=== PATIENT | male | born 1960 | race Caucasian/White ===

== ENCOUNTER 2020-04-07 07:34 | Emergency (ER) | payer BC, OTHER ==
[2020-04-07] MEDS ORDERED: Ondansetron 4 MG/2 ML SDV IVPUSH ONE (07:50)
[2020-04-07] MEDS ORDERED: HYDROmorphone 1 MG/ML Syringe IVPUSH STA (07:50)
--- NOTE | 2020-04-07 07:55 | EDM.PDOC ---
ED HPI GENERAL MEDICAL PROBLEM - General Chief Complaint: Abdominal Pain Stated Complaint: [facility] Time Seen by Provider: 04/07/20 07:40 Source of Information: Reports: Patient History Limitations: Reports: No Limitations - History of Present Illness INITIAL COMMENTS - FREE TEXT/NARRATIVE: Mr. Schaeffer is a very pleasant 59-year-old gentleman who is now brought to the ED by EMS after waking up around 02:30 this morning with left-sided abdominal and left flank pain. He describes the pain as burning in character, and states that it is constant. He has not identified any modifiers. He states that he has felt some cold sweats and nausea, but he has not vomited, and there is no associated constipation, diarrhea, or urinary symptoms. No prior similar symptoms. The patient did not take any mdaw-akl-qbvzjcs or home remedies before calling EMS, however, he was given 100 mcg of intranasal fentanyl en route to the ED. Here in the ED, the patient's initial BP is found to be mildly elevated at 148/47, otherwise, he is hemodynamically stable, afebrile, saturating 100% on room air. Prior to 02:30 this morning, the patient denies having a recent fever, chills, sore throat, ear pain, nasal or sinus congestion, cough, dyspnea, chest pain, palpitations, nausea, vomiting, constipation, diarrhea, abdominal pain, urinary symptoms, recent weight gain or weight loss, recent bloody bowel movements or black bowel movements, recent joint aches, headaches, or rashes. The patient states that he last ate around 21:00 last night. 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 Left Lower Abdominal Pain Score (Numeric/FACES): 7 - Related Data Allergies Allergy/AdvReac Type Severity Reaction Status Date / Time No Known Allergies Allergy Verified 04/07/20 07:47 Home Meds: Home Meds Ondansetron [Zofran ODT] 1 tab PO Q8H PRN #30 tab.dis 04/07/20 [Rx] Tamsulosin HCl [Flomax] 1 cap PO QAM PRN #15 cap.er.24h 04/07/20 [Rx] oxyCODONE HCl/Acetaminophen [Percocet 10-325 mg Tablet] 1 - 2 tab PO Q6H PRN #30 tablet 04/07/20 [Rx] Past Medical History Cardiovascular History: Reports: Afib (chronic), High Cholesterol, Hypertension, [place] (x 2) Endocrine/Metabolic History: Reports: Diabetes, Type II, Obesity/BMI 30+ - Past Surgical History Cardiovascular Surgical History: Reports: Coronary Artery Stent (x 3), Other (See Below) (Coronary angiogram x 4 or 5) Social & Family History - Tobacco Use Smoking Status *Q: Current Every Day Smoker Years of Tobacco use: 42 Packs/Tins Daily: 1 Packs/Tins Daily Comment: Down from 2 ppd - Alcohol Use Alcohol Use History: No - Recreational Drug Use Recreational Drug Use: No - Living Situation & Occupation Living situation: Reports: , with Spouse 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 ED EXAM, GI/ABD - Physical Exam Exam: See Below Exam Limited By: No Limitations General Appearance: Alert, WD/WN, Mild Distress (Appears uncomfortable) Eyes: Bilateral: Normal Appearance, EOMI Ears: Normal External Exam, Hearing Grossly Normal Nose: Normal Inspection Throat/Mouth: Normal Inspection, Normal Lips, Normal Voice, No Airway Compromise Head: Atraumatic, Normocephalic Neck: Normal Inspection, Full Range of Motion Respiratory/Chest: No Respiratory Distress, Lungs Clear, Normal Breath Sounds, No Accessory Muscle Use Cardiovascular: Normal Peripheral Pulses, No Edema, No Gallop, No JVD, No Murmur, No Rub, Irregularly Irregular (rate controlled) GI/Abdominal Exam: Normal Bowel Sounds, Soft, No Organomegaly, No Distention, No Abnormal Bruit, No Mass, Tender (Left abdomen, just inferior to the LUQ. Essentially nontender elsewhere.), Hernia (ventral) Back Exam: Normal Inspection, Full Range of Motion. No: CVA Tenderness (L) (reports percussion makes his pain feel better), CVA Tenderness (R) Extremities: Normal Inspection, Normal Range of Motion, Normal Capillary Refill, Other (Trace bilateral pretibial edema) Neurological: Alert, Oriented, Normal Cognition, No Motor/Sensory Deficits Psychiatric: Normal Affect Skin Exam: Warm, Dry, Intact, Normal Color, No Rash EKG INTERPRETATION EKG Date: 04/07/20 Time: 08:58 Rhythm: A-Fib Rate (Beats/Min): 70 Atkins: Normal P-Wave: Absent QRS: Normal ST-T: Normal QT: Normal Comparison: NA - No Prior EKG Course - Vital Signs Last Recorded V/S: Last Vital Signs Temp 35.8 C L 04/07/20 09:04 Pulse 78 04/07/20 09:04 Resp 18 04/07/20 09:04 BP 139/79 04/07/20 09:04 Pulse Ox 100 04/07/20 09:04 - Orders/Labs/Meds Orders: Active Orders 24 hr Category Date Time Status EKG Documentation Completion [RC] STAT Care 04/07/20 08:54 Active CBC WITH MANUAL DIFF [HEME] Stat Lab 04/07/20 07:55 Results CORONAVIRUS COVID-19 PCR PHL Stat Lab 04/07/20 09:01 Ordered Magnesium Sulfate/Water [Magnesium Sulfate in Water Med 04/07/20 09:15 Active Premix] 2 gm in 50 ml IV ONETIME Sodium Chloride 0.9% [Normal Saline] 1,000 ml Med 04/07/20 08:00 Active IV ASDIRECTED Sodium Chloride 0.9% [Saline Flush] Med 04/07/20 08:24 Active 10 ml FLUSH ONETIME PRN Medication Orders Sodium Chloride (Normal Saline) 1,000 mls @ 150 mls/hr IV ASDIRECTED MIRELLA Last Admin: 04/07/20 07:59 Dose: 150 mls/hr Documented by: BETHANY Magnesium Sulfate (Magnesium Sulfate In Water Premix) 2 gm in 50 mls @ 25 mls/hr IV ONETIME ONE Stop: 04/07/20 11:14 Sodium Chloride (Saline Flush) 10 ml FLUSH ONETIME PRN PRN Reason: IV FLUSH Last Admin: 04/07/20 08:50 Dose: 10 ml Documented by: STEF Labs: Laboratory Tests 04/07/20 04/07/20 Range/Units 07:55 07:55 WBC 9.17 H (4.23-9.07) K/mm3 RBC 5.16 (4.63-6.08) M/mm3 Hgb 15.7 (13.7-17.5) gm/dl Hct 46.1 (40.1-51.0) % MCV 89.3 (79.0-92.2) fl MCH 30.4 (25.7-32.2) pg MCHC 34.1 (32.2-35.5) g/dl RDW Std Deviation 44.4 H (35.1-43.9) fL Plt Count 155 L (163-337) K/mm3 MPV 9.0 L (9.4-12.3) fl Sodium 138 (136-145) mEq/L Potassium 3.6 (3.5-5.1) mEq/L Chloride 102 (98-107) mEq/L Carbon Dioxide 21 (21-32) mEq/L Anion Gap 18.6 H (5-15) BUN 17 (7-18) mg/dL Creatinine 1.4 H (0.7-1.3) mg/dL Est Cr Clr Drug Dosing 54.96 mL/min Estimated GFR (MDRD) 52 (>60) mL/min BUN/Creatinine Ratio 12.1 L (14-18) Glucose 161 H (74-106) mg/dL Calcium 8.7 (8.5-10.1) mg/dL Magnesium 1.6 L (1.8-2.4) mg/dl Total Bilirubin 0.6 (0.2-1.0) mg/dL AST 19 (15-37) U/L ALT 30 (16-63) U/L Alkaline Phosphatase 52 (46-116) U/L Total Protein 7.4 (6.4-8.2) g/dl Albumin 3.9 (3.4-5.0) g/dl Globulin 3.5 gm/dL Albumin/Globulin Ratio 1.1 (1-2) Meds: Medications Generic Name Dose Route Start Last Admin Trade Name Freq PRN Reason Stop Dose Admin Sodium Chloride 1,000 mls @ 150 mls/hr 04/07/20 08:00 04/07/20 07:59 Normal Saline IV 150 mls/hr ASDIRECTED MIRELLA Administration Magnesium Sulfate 2 gm in 50 mls @ 25 mls/hr 04/07/20 09:15 Magnesium Sulfate In Water Premix IV 04/07/20 11:14 ONETIME ONE Sodium Chloride 10 ml 04/07/20 08:24 04/07/20 08:50 Saline Flush FLUSH 10 ml ONETIME PRN Administration IV FLUSH Discontinued Medications Generic Name Dose Route Start Last Admin Trade Name Freq PRN Reason Stop Dose Admin Diatrizoate Meglum/Diatrizoate Sod 120 ml 04/07/20 08:24 04/07/20 08:50 Gastrografin 37% PO 04/07/20 08:25 90 ml ONETIME ONE Administration Hydromorphone HCl 1 mg 04/07/20 07:50 04/07/20 08:01 Dilaudid IVPUSH 04/07/20 07:51 1 mg ONETIME STA Administration Hydromorphone HCl 1 mg 04/07/20 08:45 04/07/20 09:01 Dilaudid IVPUSH 04/07/20 08:46 1 mg ONETIME ONE Administration Iopamidol 50 ml 04/07/20 08:24 04/07/20 08:50 Isovue-300 (61%) IVPUSH 04/07/20 08:25 50 ml ONETIME ONE Administration Iopamidol 100 ml 04/07/20 08:24 04/07/20 08:50 Isovue-300 (61%) IVPUSH 04/07/20 08:25 100 ml ONETIME ONE Administration Magnesium Sulfate 2 gm 04/07/20 09:05 Magnesium Sulfate In Water Premix IV 04/07/20 09:06 ONETIME STA Ondansetron HCl 4 mg 04/07/20 07:50 04/07/20 07:59 Zofran IVPUSH 04/07/20 07:51 4 mg ONETIME ONE Administration - Re-Assessments/Exams Free Text/Narrative Re-Assessment/Exam: 04/07/20 07:51 As above, the patient was woken around 02:30 this morning with burning left lower quadrant abdominal pain has been persistent ever since. He is hemodynamically stable, afebrile, saturating 100% on room air. On physical exam, he has the greatest tenderness to the left side of his abdomen, just below his left upper quadrant, with no significant tenderness elsewhere. No CVA tenderness, indeed, the patient stated that percussing his left flank actually felt better. No recent urinary symptoms. His examination is most consistent with an intra-abdominal process, although it is possible that his symptoms could be due to a left-sided ureterolith. I have ordered a work-up that includes blood work and a CT scan of his abdomen and pelvis with oral and IV contrast. In the meantime, the patient will be given IV Dilaudid, IV Zofran, and IV fluid. 04/07/20 09:04 The ECG confirms that the patient is in atrial fibrillation, rate controlled. The patient's CBC is remarkable for a WBC count slightly elevated at 9.17. His platelets are mildly depressed at 155,000, with the remainder of his CBC being unremarkable. His CMP is remarkable for an anion gap mildly elevated at 18.6, but with a bicarbonate within normal limits at 21. His Cr is mildly elevated at 1.4, with a BUN normal at 17. His blood glucose is mildly elevated at 161, with the remainder of his CMP being unremarkable. His magnesium level is mildly depressed at 1.6. Results of the CT of the abdomen and pelvis with oral and IV contrast are still pending. In the above, I will order a 2 g Mg-rider. 04/07/20 09:15 CT of the abdomen and pelvis with oral and IV contrast is read by Dr. Garcia as: 1. High-grade obstructing stone within the proximal left ureter located slightly distal to the UPJ. Stone measures 5.5-6 mm. 2. Other findings believed to be nonacute and incidental as described above. Based on the above, I will order Flomax, Toradol, urine strainer. 04/07/20 09:22 Test results discussed with the patient. Once his Mg-rider has finished infusing, the patient will be discharged home with prescriptions for Flomax, Zofran, and Percocet. He should take qlep-upr-[id number] ibuprofen on a regular basis, as well. He will be given a urine strainer and a referral to Dr. Garza. 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 Garza, get the stone taken care of, then resume his work. The other option would be for him to fly back to [facility] and see a Urologist there. Departure - Departure Time of Disposition: 09:25 Disposition: Home, Self-Care 01 Condition: Good Clinical Impression: Ureterolithiasis, Hypomagnesemia, Chronic atrial fibrillation - Discharge Information *PRESCRIPTION DRUG MONITORING PROGRAM REVIEWED*: Not Applicable *COPY OF PRESCRIPTION DRUG MONITORING REPORT IN PATIENT [place]AVA: Not Applicable Prescriptions: Tamsulosin HCl [Flomax] 1 cap PO QAM PRN #15 cap.er.24h PRN Reason: Pain oxyCODONE HCl/Acetaminophen [Percocet 10-325 mg Tablet] 1 - 2 tab PO Q6H PRN #30 tablet PRN Reason: Pain (Severe 7-10) Ondansetron [Zofran ODT] 1 tab PO Q8H PRN #30 tab.dis PRN Reason: Nausea/Vomiting Referrals: PCP,Not In Area [Primary Care Provider] - Chirag Garza MD [Ordering Only Provider] - Forms: ED Department Discharge Additional Instructions: You were seen in the emergency room after waking up with left sided pain, cold sweats, and nausea. Work-up in the ER included blood work, an ECG, and a CT of your abdomen and pe lvis with oral and IV contrast. Your blood work found your magnesium level to be mildly depressed at 1.6. You were given IV magnesium replacement in the ER. The CT scan found that you have a 5.5 to 6 mm stone in your upper left ureter (the tube that connects your kidney to your bladder), which is the cause of your pain. Based on the size and location of your stone, you will not likely pass it on your own. We recommend that you take sugv-eos-kliihsa ibuprofen, 3 to 4 tablets (600-800 mg) every 8 hours, with food, [id number]. You may take 1 to 2 tablets of the opioid Percocet up to every 6 hours, as needed for pain not relieved by ibuprofen. If you take Percocet, do not drive or operate heavy machinery for 12 hours afterwards. Percocet may cause constip ation, so consider taking a stool softener. Take 1 tablet of the anti-spasm medicine Flomax every morning, starting tomorrow morning, 04/08/2020, as needed for pain. You may dissolve 1 tablet of the anti-nausea medicine Zofran on your tongue up to every 8 hours, as needed for nausea/vomiting. Follow-up with the Urologist Dr. Chirag Garza, in [place], at the next available appointment. Make sure that the inside wirer understands that you are following up from the ER. Alternatively, you can follow-up with a Urologist back home in [place], [place]. Stay adequately hydrated. It does not really matter what type of fluid you drink. Strain all of your urine. If you pass a stone, take it to your Urologist for evaluation. If any other problems, please do not hesitate to return to the ER. Sepsis Event Note (ED) - Evaluation Sepsis Screening Result: No Definite Risk - Focused Exam Vital Signs: Vital Signs Temp Pulse Resp BP Pulse Ox 04/07/20 09:04 35.8 C L 78 18 139/79 100 04/07/20 07:40 36.0 C L 74 18 148/87 H 100 - My Orders Last 24 Hours: My Active Orders 04/07/20 07:55 CBC WITH MANUAL DIFF [HEME] Stat 04/07/20 08:00 Sodium Chloride 0.9% [Normal Saline] 1,000 ml IV ASDIRECTED 04/07/20 08:24 Sodium Chloride 0.9% [Saline Flush] 10 ml FLUSH ONETIME PRN 04/07/20 08:54 EKG Documentation Completion [RC] STAT 04/07/20 09:01 CORONAVIRUS COVID-19 PCR PHL Stat 04/07/20 09:15 Magnesium Sulfate/Water [Magnesium Sulfate in Water Premix] 2 gm in 50 ml IV ONETIME - Assessment/Plan Last 24 Hours: My Active Orders 04/07/20 07:55 CBC WITH MANUAL DIFF [HEME] Stat 04/07/20 08:00 Sodium Chloride 0.9% [Normal Saline] 1,000 ml IV ASDIRECTED 04/07/20 08:24 Sodium Chloride 0.9% [Saline Flush] 10 ml FLUSH ONETIME PRN 04/07/20 08:54 EKG Documentation Completion [RC] STAT 04/07/20 09:01 CORONAVIRUS COVID-19 PCR PHL Stat 04/07/20 09:15 Magnesium Sulfate/Water [Magnesium Sulfate in Water Premix] 2 gm in 50 ml IV ONETIME
[2020-04-07] MEDS ORDERED: Sodium Chloride 0.9% 1,000 ML IV SCH (08:00)
[2020-04-07] MEDS ORDERED: Iopamidol 612 MG/ML 50 ML SDV IVPUSH ONE (08:24)
[2020-04-07] MEDS ORDERED: Diatrizoate Meglumine/Diatrizoate Sodium 37% 120 ML Bottle PO ONE (08:24)
[2020-04-07] MEDS ORDERED: Iopamidol 612 MG/ML 100 ML Bottle IVPUSH ONE (08:24)
[2020-04-07] MEDS ORDERED: Sodium Chloride 0.9% 10 ML Syringe FLUSH PRN (08:24)
[2020-04-07] MEDS ORDERED: HYDROmorphone 1 MG/ML Syringe IVPUSH ONE (08:45)
[2020-04-07] MEDS ORDERED: Magnesium Sulfate/Water 2 GM/50 ML Premix Bag IV STA (09:05)
--- NOTE | 2020-04-07 09:13 | CT ---
CT abdomen and pelvis Technique: Multiple axial sections were obtained from above the dome of the diaphragm inferiorly through the pubic symphysis. Intravenous contrast was utilized. Oral contrast given which remains within the stomach and proximal small bowel. Delayed images were obtained. Reconstructed coronal and sagittal images were obtained. Comparison: No previous abdominal imaging is available. Findings: Inflammatory change and diminished enhancement of the left kidney is seen as compared to the right side. Collecting system is dilated. These findings are caused by an obstructing proximal left ureteral stone measuring approximately 5.5-6 mm. This is located slightly past the UPJ. Small cyst noted within the lower left kidney measuring 1.3 cm. Right kidney is unremarkable. No additional ureteral calculi are seen. Other findings: Visualized lung bases show nothing acute. Fatty infiltration is noted within the liver. Spleen appears normal. Adrenal glands show no nodule. Small hiatal hernia is present. Pancreas shows no discrete abnormality. Aorta shows atherosclerotic calcification which continues into the iliac vessels. No aneurysm is seen. No retroperitoneal adenopathy or mesenteric abnormalities are appreciated. Appendix is seen and is normal in size. No pelvic mass or adenopathy is seen. Delayed images shows contrast within the right ureter and within the bladder. No contrast is seen within the left ureter. Bone window settings were reviewed. Mild scattered degenerative change within the spine is seen. Unilateral spondylolytic defects seen at L5-S1. Impression: 1. High-grade obstructing stone within the proximal left ureter located slightly distal to the UPJ. Stone measures 5.5-6 mm. 2. Other findings believed to be nonacute and incidental as described above. Diagnostic code #3 This report was dictated in MDT
[2020-04-07] MEDS ORDERED: Magnesium Sulfate/Water 2 GM/50 ML BAG IV ONE (09:15)
[2020-04-07] MEDS ORDERED: Ketorolac 30 MG/ML SDV IVPUSH STA (09:17)
[2020-04-07] MEDS ORDERED: Tamsulosin 0.4 MG Cap.ER PO ONE (09:17)
== END 2020-04-07 11:45 | disposition home or self-care (01) ==
LOC: JD.ED 07:34
DX: N20.1 Calculus of ureter (principal); E83.42 Hypomagnesemia; I48.20 Chronic atrial fibrillation, unspecified; E11.9 Type 2 diabetes mellitus without complications; I10 Essential (primary) hypertension; I25.2 Old myocardial infarction; E66.9 Obesity, unspecified; F17.210 Nicotine dependence, cigarettes, uncomplicated; Z95.5 Presence of coronary angioplasty implant and graft; Z68.39 Body mass index [BMI] 39.0-39.9, adult; Z11.59 Encounter for screening for other viral diseases
CPT/HCPCS: 36415; 74177; 80053; 83735; 85007; 85027; 87635; 93005; 96361; 96365; 96366; 96375; 96376; 99285; A9270; J1170; J1885; J2405; J3475; J7030; Q9963; Q9967; 99284; U0002